=== PATIENT | female | born 1955 | race Caucasian/White ===

== ENCOUNTER → 2019-06-01 17:18 | Outpatient (ROUT) | payer OTHER, SELFPAY | PROVIDERS: Family Provider Family Medicine; PCP Family Medicine; Visit Provider Family Medicine | DX: K52.9 Noninfective gastroenteritis and colitis, unspecified (principal) | CPT/HCPCS: 87045; 87177; 87899 ==

== ENCOUNTER → 2019-06-11 08:47 | Outpatient (CLI) | payer MEDICAID, SELFPAY ==
[2019-06-11 09:31] LABS: Hematocrit 40.2 % (36-46); Hemoglobin 13.4 g/dL (12.0-16.0); Mean Corpuscular HGB Conc 33.4 % (30-36); Mean Corpuscular Hemoglobin 30.1 PG (26-34); Mean Corpuscular Volume 90.3 fL (80-100); Platelet Count 257 X10^3/uL (150-400); Red Blood Cell Count 4.45 X10^6/uL (4.0-5.2); Red Cell Distribution Width 13.2 % (11.6-14.8); White Blood Cell Count 3.9 X10^3/uL (4.5-11.0)
[2019-06-11 10:13] LABS: Alanine Aminotransferase 22 IU/L (9-52); Albumin 4.3 g/dL (3.5-5.0); Albumin Globulin Ratio 1.3 (1.0-2.8); Alkaline Phosphatase 66 U/L (38-126); Amylase 145 U/L (30-110); Aspartate Aminotransferase 25 IU/L (14-36); Bilirubin Total 0.9 mg/dL (0.2-1.3); Blood Urea Nitrogen 16 mg/dL (7-17); Calcium 9.6 mg/dL (8.4-10.2); Carbon Dioxide 29 mmol/L (22-32); Chloride 105 mmol/L (98-107); Cholesterol 188 mg/dL (140-199); Estimated Glomerular Filt Rate > 60.0 mL/min (>60); Globulin 3.2 g/dL (1.7-4.1); Glucose 84 mg/dL (80-110); HDL Cholesterol 63 mg/dL (40-60); HEMOLYSIS < 15 (0-50); LDL Cholesterol Calculated 104 mg/dL (<100); Lipase 162 U/L (23-300); Potassium 4.8 mmol/L (3.4-5.1); Sodium 141 mmol/L (137-145); Total Protein 7.5 g/dL (6.3-8.2); Triglycerides 103 mg/dL (35-150)
[2019-06-11 10:41] LABS: Thyroid Stimulating Hormone 2.42 uIU/mL (0.47-4.68)
[2019-06-11 10:43] LABS: Neutrophils Absolute Manual 1872 /uL (3000-5900); Total Cells Counted 100
[2019-06-11 10:47] LABS: RBC Morphology Normal Morphology
== END ==
PROVIDERS: Family Provider Family Medicine; PCP Family Medicine; Visit Provider Family Medicine
DX: R10.9 Unspecified abdominal pain (principal); R19.7 Diarrhea, unspecified; Z13.220 Encounter for screening for lipoid disorders; Z13.29 Encounter for screening for other suspected endocrine disorder
CPT/HCPCS: 36415; 80053; 80061; 82150; 83690; 84443; 85025

== ENCOUNTER → 2019-07-03 12:23 | Outpatient (CLI) | payer OTHER, MEDICAID, SELFPAY ==
--- NOTE | 2019-07-03 12:24 | DI.US.S_ITS ---
PROCEDURE: US ABDOMEN COMPLETE INDICATIONS: ABDOMINAL PAIN TECHNIQUE: Real-time scanning was performed of the abdominal and retroperitoneal organs, with image documentation. COMPARISON: [facility], CT, ANGIO CHEST ABDOMEN PELVIS, 02/02/2017, 12:02. FINDINGS: Liver: Liver is atrophic measuring 12.9 cm in length. Echogenic lesion measuring 1.1 x 1.0 x 0.9 cm noted presumably cavernous hemangioma although technically nonspecific. Gallbladder: Shadowing gallstones are noted. There is borderline wall thickening measuring 3.0 mm, but no pericholecystic fluid or sonographic Bishop sign Biliary ducts: Intrahepatic bile ducts are non-dilated. Extrahepatic bile duct caliber measures 5 mm. Normal is 6-7 mm or less in diameter, or 10 mm or less post-cholecystectomy. Pancreas: Visualized portions of the pancreas are sonographically normal. Pancreatic duct measures 2 mm Spleen: Spleen is normal in size and homogeneous in echotexture. Kidneys: Kidneys are normal in size and echotexture. Right kidney measures 9.5 cm long; left kidney measures 8.8 cm long. No hydronephrosis or nephrolithiasis. No solid masses. Right renal cyst involving the interpolar region measuring 0.9 x 0.6 x 0.6 cm Aorta: Visualized aorta is normal in caliber at less than 3 cm. Iliacs: Proximal common iliac arteries are normal in caliber at less than 2.5 cm. IVC: Intrahepatic inferior vena cava is patent. Miscellaneous: No free abdominal fluid. IMPRESSION: Cholelithiasis and questionable sludge borderline wall thickening however no other sonographic criteria for acute cholecystitis. Please correlate clinically and with LFTs. Right renal cyst. Incidentally noted, presumed echogenic cavernous hemangioma although technically nonspecific. this could be monitored with 6 month interval ultrasound, x2 years total surveillance. Dictated by: Yao Lucas M.D. on 07/03/2019 at 13:41 Approved by: Yao Lucas M.D. on 07/03/2019 at 13:48
== END ==
PROVIDERS: PCP Family Medicine; Visit Provider Family Medicine
DX: R10.9 Unspecified abdominal pain (principal); K80.20 Calculus of gallbladder without cholecystitis without obstruction; N28.1 Cyst of kidney, acquired
CPT/HCPCS: 76700

== ENCOUNTER 2019-09-07 06:26 | Day surgery (SDC) | payer OTHER, MEDICAID, SELFPAY ==
[2019-09-07] VITALS (19 sets, daily range): BP systolic 126–163; BP diastolic 47–75; PULSE 47–85; RESP 9–20; TEMP 35.8–36.6; O2SAT 97–100; BMI 23.6
--- NOTE | 2019-09-07 | PATH_ITS ---
[facility] Accession Number: [id number] . 01 Material submitted: . gallbladder - GALLBLADDER . 02 Diagnosis: Gallbladder, Cholecystectomy: Gallbladder with mild chronic cholecystitis, cholesterolosis, and cholelithiasis. MRV 09/10/2019 1331 Local . 02 Electronically signed: . Joy Pham MD, Pathologist NPI- [id number] . 01 Gross description: . Received in formalin, labeled gallbladder, is an intact gallbladder (length-8.6 cm, diameter-2.5 cm) with branch-green smooth and shiny serosa and a patent cystic duct. No lymph nodes are identified. The lumen contains dark green viscous bile and multiple yellow gritty friable calculi (1.7 x 0.9 x 0.8 cm in aggregate). The mucosa is green smooth and flat. The wall is up to 0.1 cm thick. No nodules, masses or lesions are identified. Section code: (A1) cystic duct resection margin and two serial sections from the body; (A2) two longitudinal sections from the fundus. ([id number]) /[facility] 09/08/2019 1859 Local . 02 Pathologist provided ICD-10: K81.1, K80.70 . 02 CPT . 124954 Specimen Comment: A duplicate report has been generated due to demographic updates. Performed at: 01 [facility] [address] [place] [address], [place], [place] [id number] MD Kamaljit Donnelly MD Phone: [phone] Performed at: 02 [facility] [address] [place], [place] [id number] MD Lore Patel MD Phone: [phone]
[2019-09-07] MEDS: LACTATED RINGERS 1,000 ML 42 ML IV ×3 (07:30→11:00)
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
--- NOTE | 2019-09-07 07:59 | PM.PREOP ---
Pre-operative Note Interval Note History & Physical reviewed/Exam performed by Physician: Yes Changes to H&P: No
[2019-09-07] MEDS: CEFAZOLIN 2 GM/100 ML FROZ.PIGGY IV (08:05)
--- NOTE | 2019-09-07 08:08 | SUR.OPER ---
Supine on padded OR bed, head on pillow, safety belt at thigh, Bilateral arms secured on padded arm oard <90 degrees abduction. Legs uncrossed. Padded footboard in place. Tape over blanket to secure lower legs.
[2019-09-07] MEDS: BUPIVACAINE 0.5% (PF) VIAL 30 ML INJ (08:23)
[2019-09-07] MEDS: fentaNYL 100 MCG/2 ML INJ 50 MCG IV (10:02)
--- NOTE | 2019-09-07 10:03 | PM.OP.1 ---
Operative Date/Time/Diagnoses Date of procedure: 09/07/19 Time of procedure: 10:00 Pre-op diagnosis: Cholelithiasis cholecystitis chronic Post-op diagnosis: same Procedure & Clinicians Procedure: Laparoscopic cholecystectomy Same procedure as scheduled: Yes Indications: Right upper quadrant pain with gallstones Surgeon: Kane Joseph Click Yes if Unassisted: Yes Anesthesia Type: General Operative Notes Findings: Mild inflammation of the gallbladder with stones. Closure Type: primary Specimen(s): other (Gallbladder) Prosthetic devices, grafts, tissues, transplants, or devices: None Estimated Blood Loss (mL): 10 Procedure in detail: The patient was placed supine on the operating room table and underwent general endotracheal anesthesia. The patient was prepped and draped in the usual fashion. Local anesthetic was infiltrated near the umbilicus and curvilinear incision made and carried down through fascia into the peritoneal cavity. Stay sutures of 0 Vicryl were placed in the fascia. A 12 mm port was placed. The abdomen was insufflated. The patient was repositioned. Local anesthetic was infiltrated in 3 areas under the right costal margin and 3 incisions made followed by placing 3 5 mm ports under direct laparoscopic camera vision internally. The gallbladder was grasped and elevated. Dissection was begun near its end. Adhesions to its surface were taken down sharply. These were flimsy. I the ductal structure and vascular structures from surrounding tissue. All were structures that were going directly to the gallbladder no air also. Clips were placed across Each of these and they divided leaving at least 2 on each structure in the patient.. The gallbladder was then dissected from its bed in the liver using cautery. There was no spillage. It was detached and removed through the umbilical port. the port sites were all irrigated. The stay sutures at the umbilicus were elevated. A 2 0 PDS suture was placed between them. The Vicryl and PDS sutures were then tied. The skin in all areas was closed with interrupted 4 0 Vicryl subcuticular stitches. Steri-Strips and Mastisol were applied. Band-Aids were placed and the patient was awakened, extubated and taken to the recovery area in good condition. Complications: none Post-operative Condition: stable Disposition: PACU
[2019-09-07] MEDS: HYDROCODONE/ACET 5/325 TABLET 1 TAB PO ×2 (10:32→15:23)
[2019-09-07 11:14] LABS: BUN Creatinine Ratio 21.7 (6-22); Blood Urea Nitrogen 13 mg/dL (7-17); Calcium 8.9 mg/dL (8.4-10.2); Carbon Dioxide 25 mmol/L (22-32); Chloride 105 mmol/L (98-107); Creatine Kinase 87 U/L (30-135); Estimated Glomerular Filt Rate > 60.0 mL/min (>60); Glucose 103 mg/dL (80-110); HEMOLYSIS < 15 (0-50); Magnesium 1.6 mg/dL (1.6-2.3); Potassium 4.6 mmol/L (3.4-5.1); Sodium 139 mmol/L (137-145)
--- NOTE | 2019-09-07 11:15 | SUR.PHASEI ---
Pt with intermittent irregular heart rhythm noted on bedside monitor. Heart rate as low as 38 when irregular, but pt is asymptomatic with stable BP. 12 lead EKG obtained and Dr Joseph and Dr Alicea notified. Dr Joseph consulted a hospitalist to review the EKG and ordered stat labs to include cardiac markers and a CMP to check the pt's blood potassium and magnesium levels. The hospitalist, Dr Bar, to the bedside to review EKG. Dr Bar consulted with cardiology and determined that the pt was having frequent premature atrial and ventricular contractions likely as a result of increased vagal response from the abdominal surgery. Plan is to continue monitoring pt and replete eletrolytes until potassium is >4 and magnesium >2. Pt should hold evening dose of diltiazem and resume normal schedule tomorrow and Dr Joseph will see the pt again before she is discharged. Will continue to monitor pt and communicate any changes to Dr Joseph and Dr Bar.
--- NOTE | 2019-09-07 11:21 | SUR.PHASEII ---
warming measure for comfort intiated. remains on constant monitoring at this time.
[2019-09-07 11:26] LABS: Troponin I < 0.012 ng/mL (0.01-0.034)
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
[2019-09-07] MEDS: MAGNESIUM SULFATE 2 GM/50 ML PIGGYBACK IV (12:54)
[2019-09-07] MEDS: ONDANSETRON 4 MG/2 ML INJ IV (15:02)
--- NOTE | 2019-09-07 15:05 | SUR.PHASEII ---
Pt c/o intermittent nausea, medicated with Zofran. Yolanda jewell.
--- NOTE | 2019-09-07 15:48 | SUR.PHASEII ---
Pt held in phase II r/t abnormal rhythms noted while placed on monitor in Phase I. ECG, Labs and consult with cardiology occurred during the intital epidodes. Labs revealed a Mg+ level of 1.6 so 2gm mag rider was order to run over the coarse of 2hours. Pt tolerated well, OOB to bathroom with 1PA. Pain was rated 2/10 so 1 additional vicodin was administered prior to departure. Pt VS were stable, and no further episodes of dysrhythmias were observed. Pt departured in stable condition and was escorted to ED where she was transported to home in private vehicle.
== END 2019-09-07 15:33 | disposition home or self-care (01) ==
PROVIDERS: PCP Family Medicine; Visit Provider Specialist
PROC: 0FT44ZZ Resection of Gallbladder, Percutaneous Endoscopic Approach (ICD-10-PCS; CPT 47562; principal; 2019-09-07 07:45)
DX: K80.10 Calculus of gallbladder with chronic cholecystitis without obstruction (principal); I10 Essential (primary) hypertension
CPT/HCPCS: 47562; 80048; 82550; 83735; 84484; 93005; J0330; J0690; J1100; J2405; J2704; J3010

== ENCOUNTER → 2021-10-11 08:33 | Outpatient (CLI) | payer OTHER, SELFPAY ==
[2021-10-11 09:31] LABS: Add Manual Diff / Slide Review NO; Basophils Absolute Auto 100 /uL (0-100); Basophils Percent Auto 0.9 % (0-2); Eosinophils Absolute Auto 100 /uL (0-450); Eosinophils Percent Auto 1.3 % (2-4); Hematocrit 41.4 % (36-46); Hemoglobin 13.8 g/dL (12.0-16.0); Lymphocytes Absolute Auto 1200 /uL (1100-4500); Lymphocytes Percent Auto 18.3 % (25-40); Mean Corpuscular HGB Conc 33.3 % (30-36); Mean Corpuscular Hemoglobin 29.5 PG (26-34); Mean Corpuscular Volume 88.4 fL (80-100); Monocytes Absolute Auto 300 /uL (0-900); Monocytes Percent Auto 4.3 % (3-14); Neutrophils Absolute Auto 4800 /uL (1500-7000); Neutrophils Percent Auto 75.2 % (50-75); Platelet Count 337 X10^3/uL (150-400); Red Blood Cell Count 4.68 X10^6/uL (4.0-5.2); Red Cell Distribution Width 13.4 % (11.6-14.8); White Blood Cell Count 6.4 X10^3/uL (4.5-11.0)
[2021-10-11 09:50] LABS: Alanine Aminotransferase 17 IU/L (<35); Albumin 4.8 g/dL (3.5-5.0); Albumin Globulin Ratio 1.5 (1.0-2.8); Alkaline Phosphatase 79 U/L (38-126); Aspartate Aminotransferase 32 IU/L (14-36); BUN Creatinine Ratio 17.9 (6-22); Bilirubin Total 0.9 mg/dL (0.2-1.3); Blood Urea Nitrogen 15 mg/dL (7-17); Calcium 9.8 mg/dL (8.4-10.2); Carbon Dioxide 29 mmol/L (22-32); Chloride 105 mmol/L (98-107); Cholesterol 224 mg/dL (140-199); Estimated Glomerular Filt Rate > 60.0 mL/min (>60); Globulin 3.3 g/dL (1.7-4.1); Glucose 90 mg/dL (80-110); HDL Cholesterol 87 mg/dL (40-60); HEMOLYSIS 16 (0-50); LDL Cholesterol Calculated 119 mg/dL (<100); Potassium 4.9 mmol/L (3.4-5.1); Sodium 142 mmol/L (137-145); Total Protein 8.1 g/dL (6.3-8.2); Triglycerides 91 mg/dL (35-150)
[2021-10-11 10:15] LABS: Thyroid Stimulating Hormone 1.76 uIU/mL (0.47-4.68)
== END ==
PROVIDERS: Referring Provider Nurse Practitioner Acute Care; Visit Provider Nurse Practitioner Acute Care
DX: R00.2 Palpitations (principal)
CPT/HCPCS: 36415; 80053; 80061; 83036; 84443; 85025

== ENCOUNTER → 2022-01-01 11:59 | Outpatient (CLI) | payer OTHER, SELFPAY ==
[2022-01-02 08:13] LABS: Fecal Immunochemical Test Negative (Negative)
== END ==
PROVIDERS: PCP Student in an Organized Health Care Education/Training Program; Referring Provider Student in an Organized Health Care Education/Training Program; Visit Provider Student in an Organized Health Care Education/Training Program
DX: Z12.11 Encounter for screening for malignant neoplasm of colon (principal)
CPT/HCPCS: 82274

== ENCOUNTER 2025-08-05 17:23 | Emergency (ER) | payer BC, OTHER, SELFPAY ==
[2025-08-05] VITALS (18 sets, daily range): BP systolic 152–198; BP diastolic 67–83; PULSE 53–99; RESP 12–35; TEMP 36.9; O2SAT 96–100; BMI 26.4
--- NOTE | 2025-08-05 17:33 | EKG_ITS ---
[place] [address] [address] [address] Test Date: 2025-08-05 Pat Name: Brian Padilla Department: Room: Gender: Female Hand Umbrella Tipper: GISELLA : 1955 Requested By: Order Number: [id number] Reading MD: Shaq Payne MD Measurements Intervals [place] Rate: 61 P: 66 NE: 144 QRS: 37 QRSD: 64 T: 43 QT: 406 QTc: 408 Interpretive Statements Sinus rhythm with premature atrial complexes Electronically Signed On 08-09-2025 7:44:28 PDT by Shaq Payne MD
--- NOTE | 2025-08-05 17:33 | DI.RAD.S_ITS ---
PROCEDURE: XR CHEST 1V INDICATIONS: Chest Pain TECHNIQUE: One view of the chest was acquired. COMPARISON: None. FINDINGS: Surgical changes and devices: None. Lungs and pleura: Lungs are clear. No pleural effusions or pneumothorax. Mediastinum: Mediastinal contours appear normal. Heart size is normal. Bones and chest wall: No suspicious bony lesions. Overlying soft tissues appear unremarkable. IMPRESSION: No acute cardiopulmonary abnormalities or focal consolidation. Dictated by: Timbo Mo M.D. on 08/05/2025 at 17:58 Approved by: Timbo Mo M.D. on 08/05/2025 at 17:59
[2025-08-05 17:54] LABS: INR 1.0 (0.9-1.3); Prothrombin Time 11.6 SECONDS (9.4-12.5)
--- NOTE | 2025-08-05 17:54 | EKG_ITS ---
[address] [address] Test Date: 2025-08-05 Pat Name: Brian Padilla Department: Room: Gender: Female Express Manager: : 1955 Requested By: Order Number: [id number] Reading MD: Shaq Payne MD Measurements Intervals [place] Rate: 60 P: 55 AR: 134 QRS: 33 QRSD: 68 T: 25 QT: 412 QTc: 412 Interpretive Statements Normal sinus rhythm with sinus arrhythmia Electronically Signed On 08-09-2025 7:44:30 PDT by Shaq Payne MD
[2025-08-05 17:56] LABS: PTT Partial Thromboplastin Tim 33 SECONDS (25.1-36.5)
[2025-08-05 17:58] LABS: Alanine Aminotransferase 64 IU/L (<35); Albumin 4.7 g/dL (3.5-5.0); Albumin Globulin Ratio 1.3 (1.0-2.8); Alkaline Phosphatase 83 U/L (38-126); Blood Urea Nitrogen 16 mg/dL (7-17); Calcium 9.0 mg/dL (8.4-10.2); Carbon Dioxide 25 mmol/L (22-32); Chloride 106 mmol/L (98-107); Creatine Kinase 130 U/L (30-135); Estimated Glomerular Filt Rate > 60 mL/min (>60); Globulin 3.7 g/dL (1.7-4.1); Glucose 93 mg/dL (70-99); HEMOLYSIS < 15 (0-50); Lipase 816 U/L (23-300); Magnesium 2.1 mg/dL (1.6-2.3); Potassium 3.8 mmol/L (3.4-5.1); Sodium 141 mmol/L (137-145); Total Protein 8.4 g/dL (6.3-8.2)
[2025-08-05 18:10] LABS: NT-proBNP (BNP-Adult 18+) 104 pg/mL (<125); Troponin I < 0.012 ng/mL (0.01-0.034)
[2025-08-05 18:12] LABS: Add Manual Diff / Slide Review NO; Hematocrit 39.0 % (36-46); Hemoglobin 13.2 g/dL (12.0-16.0); Lymphocytes Absolute Auto 900 /uL (1100-4500); Mean Corpuscular HGB Conc 33.8 % (30-36); Mean Corpuscular Hemoglobin 30.0 PG (26-34); Mean Corpuscular Volume 88.9 fL (80-100); Platelet Count 262 X10^3/uL (150-400)
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
--- NOTE | 2025-08-05 18:51 | DI.CT.S_ITS ---
PROCEDURE: CT ABDOMEN PELVIS W CON INDICATIONS: epig pain, lipase 800s TECHNIQUE: After the administration of intravenous contrast, axial sections acquired from the lung bases to the pubic symphysis. Coronal and sagittal reformats were performed. For radiation dose reduction, the following was used: automated exposure control, adjustment of mA and/or kV according to patient size. COMPARISON: CT, ANGIO CHEST ABDOMEN PELVIS, 02/02/2017, 12:02. [facility], , US ABDOMEN LIMITED, 08/05/2025, 19:46--images unable to be retrieved. FINDINGS: Image quality: Diagnostic. Lower Chest: No significant findings. ABDOMEN: Liver: No solid mass. Steatosis. Cystic structure the inferolateral aspect of the liver is present measuring 3.7 cm. It is identified in the report of 2017 and similar in size. Gallbladder: Removed. Biliary ducts: No biliary dilation. Pancreas: No ductal dilation. Spleen: Size is within normal limits. Adrenal Glands: No adrenal nodules. Kidneys and Ureters: No hydronephrosis. Bilateral low-attenuation foci, too small to definitively characterize. Stomach and Bowel: Normal colonic caliber, without significant wall thickening. Scattered stool without obstruction. Peritoneum: No abnormal intraperitoneal fluid. No free air. Ventral Wall: No significant ventral hernia. Abdominal Nodes: No retroperitoneal or mesenteric adenopathy by size criteria. Vessels: Aorta and inferior vena cava are normal in size. PELVIS: Pelvic Organs: Unremarkable. Bladder: No bladder wall thickening, accounting for underdistention. Pelvic Nodes: No enlarged lymph nodes. Miscellaneous: No inguinal hernias are seen. Bones: No aggressive osseous abnormality. IMPRESSION: Pancreas appears unremarkable. Cholecystectomy. Cystic structure along the inferior medial liver unchanged. Dictated by: Jessica Tenorio M.D. on 08/05/2025 at 21:12 Approved by: Jessica Tenorio M.D. on 08/05/2025 at 21:15
--- NOTE | 2025-08-05 18:57 | DI.US.S_ITS ---
PROCEDURE: US ABDOMEN LIMITED INDICATIONS: RUQ abd, lipase elevated TECHNIQUE: Real-time scanning was performed of the abdominal and retroperitoneal organs, with image documentation. COMPARISON: [facility], CT, CT ABDOMEN PELVIS W CON, 08/05/2025, 20:00. FINDINGS: Liver: Liver is normal in size and homogeneous in echotexture. Gallbladder: No gallstones. No wall thickening. No pericholecystic edema. Negative sonographic Bishop's sign. Biliary ducts: Intrahepatic bile ducts are non-dilated. Extrahepatic bile duct caliber measures 1.4 mm. Normal is 6-7 mm or less in diameter, or 10 mm or less post-cholecystectomy. Pancreas: Visualized portions of the pancreas are sonographically normal. Miscellaneous: No free abdominal fluid. IMPRESSION: Unremarkable exam. Dictated by: Jessica Tenorio M.D. on 08/05/2025 at 20:27 Approved by: Jessica Tenorio M.D. on 08/05/2025 at 20:28
[2025-08-05] MEDS: PANTOPRAZOLE 40 MG VIAL IV (19:14)
[2025-08-05] MEDS: MAG HYDROX/ALUM/SIMETH 30 ML UDC PO (21:48)
[2025-08-05 22:25] LABS: Troponin I < 0.012 ng/mL (0.01-0.034)
== END 2025-08-05 23:21 | disposition home or self-care (01) ==
PROVIDERS: Emergency Medicine; Emergency Provider Emergency Medicine; PCP Student in an Organized Health Care Education/Training Program
DX: R07.9 Chest pain, unspecified (principal); R10.9 Unspecified abdominal pain; R74.8 Abnormal levels of other serum enzymes; Z90.49 Acquired absence of other specified parts of digestive tract
CPT/HCPCS: 71045; 74177; 76705; 80053; 81003; 82550; 83690; 83735; 83880; 84484; 85025; 85610; 85730; 93005; 96374; 99284; J2470; Q9967